=== PATIENT | female | born 1960 | race Caucasian/White ===

== ENCOUNTER 2016-06-18 10:56 | Emergency (ER) | payer MEDICARE ==
[2016-06-18] MEDS ORDERED: ONDANSETRON HCL/PF 4 MG/ 2ML VIAL IVP ONE (11:32)
[2016-06-18] MEDS ORDERED: DIPHENOXYLATE HCL/ATROPINE 1 EACH TABLET PO ONE (11:32)
[2016-06-18 11:40] LABS: BASOPHILS % 0.6 (0.0-1.5); EOSINOPHILS % 0.3 % (0.0-6.8); LYMPHOCYTES # 0.9 # k/uL (0.6-4.0); MEAN CORPUSCULAR HEMOGLOBIN 31.8 pg (28.0-34.0); MONOCYTES # 0.2 # k/uL (0.0-0.9); MONOCYTES % 3.5 % (0.0-11.0); NEUTROPHILS # 3.6 # k/uL (1.4-7.7)
[2016-06-18] MEDS ORDERED: 0.9 % SODIUM CHLORIDE 1,000 ML IV ONE (11:44)
[2016-06-18 11:53] LABS: eGFR (African) > 60; eGFR (Non-African) > 60
[2016-06-18] MEDS ORDERED: 0.9 % SODIUM CHLORIDE 1,000 ML IV SCH (12:00)
--- NOTE | 2016-06-18 13:34 | ED Physician Documentation ---
Nausea/Vomiting/Diarrhea - HISTORIAN Historian: patient - HPI Stated Complaint: N/V/D and Dizziness Chief Complaint: Nausea,Vomiting,Diarrhea Onset: days ago (7) Duration: sudden-onset Timing: sudden onset, still present Context: denies: out of country travel, bad food, recent trauma Severity: moderate Further Comments: no - Associated Symptoms Vomiting: mild Diarrhea: mild Abdominal Pain: none - ROS CONST: no problems CVS/RESP: dry cough. denies: chest pain, shortness of breath GI/: constipation, other (n/v/d) EYES/ENT: none MS/SKIN/LYMPH: denies: joint pain, leg swelling, rash, swollen glands, ankle swelling NEURO/PSYCH: none - PAST HX Past History: none, other (hyperlipidemia) Other History: denies: gall stones, colon problems Surgeries/Procedures: none Immunizations: referred to PCP Allergies/Adverse Reactions: Allergies Allergy/AdvReac Type Severity Reaction Status Date / Time ciprofloxacin HCl Allergy Verified 03/30/14 09:43 [From Cipro] Sulfa (Sulfonamide Allergy Verified 03/30/14 09:43 Antibiotics) [Sulfa(Sulfonamide Antibiotics)] tetracycline [Tetracycline] Allergy Verified 03/30/14 09:43 Home Medications: Ambulatory Orders Medication Instructions Recorded Aspirin [Aspirin EC] 81 mg PO DAILY 04/19/12 Calcium Carbonate/Vitamin D3 1 each PO DAILY 04/19/12 [Calcium + Vitamin D Tablet] Citalopram Hydrobromide 40 mg PO DAILY 04/19/12 [Citalopram HBr] Fluticasone Propionate [Flovent 50 mcg IH DAILY 04/19/12 Diskus] Metformin HCl [Glucophage] 500 mg PO BID 04/19/12 Multivitamin [Multi-Day Vitamins] 1 each PO DAILY 04/19/12 Kim-3/Dha/Epa/Fish Oil [Fish Oil 1 cap PO BID 04/19/12 Kim-3 Softgel] Pravastatin Sodium [Pravachol] 40 mg PO DAILY 04/19/12 Sennosides/Docusate Sodium [Stool 1 each PO TID 04/19/12 Softener Tablet] - SOCIAL HX Smoking History: cigarettes Alcohol Use: none Drug Use: none - FAMILY HX Family History: none - VITAL SIGNS Vital Signs: Vital Signs Temp Pulse Resp BP Pulse Ox 98.1 F 73 18 112/74 95 06/18/16 13:37 03/24/17 13:37 06/18/16 13:37 06/18/16 13:37 06/18/16 13:37 - REVIEWED ASSESSMENTS Nursing Assessment Reviewed: Yes Vitals Reviewed: Yes Progress - Results/Orders Results/Orders: cbc, cmp, ua, cxr, flu a and b ordered - Progress Progress: pt stable entire time in er Critical Care Note - Critical Care Note Total Time (mins): 0 ED Results Lab/Radiology - Lab Results Lab Results: Lab Results 06/18/16 06/18/16 06/18/16 11:55 11:35 11:35 WBC 4.90 K/ul K/ul (4.00-12.00) RBC 4.06 M/ul M/ul (3.90-5.20) Hgb 12.9 g/dL g/dL (12.0-16.0) Hct 36.4 % % (34.5-46.5) MCV 89.6 fl fl (80.0-100.0) MCH 31.8 pg pg (28.0-34.0) MCHC 35.4 g/dL g/dL (30.0-36.0) RDW 12.8 % % (11.3-14.3) Plt Count 174 K/mm3 K/mm3 (130-400) Neut % (Auto) 73.2 % % (39.0-79.0) Lymph % (Auto) 18.9 % % (16.0-50.0) [place] % (Auto) 3.5 % % (0.0-11.0) Eos % (Auto) 0.3 % % (0.0-6.8) Baso % (Auto) 0.6 (0.0-1.5) Neut # 3.6 # k/uL # k/uL (1.4-7.7) Lymph # 0.9 # k/uL # k/uL (0.6-4.0) [place] # 0.2 # k/uL # k/uL (0.0-0.9) Eos # 0.0 # k/uL # k/uL (0.0-0.6) Baso # 0.0 # k/uL # k/uL (0.0-0.5) Reactive Lymphs % 3.6 % % (0.0-5.0) Reactive Lymphs # 0.2 # k/uL # k/uL (0.0-0.8) Sodium 132 mmol/L L mmol/L (136-145) Potassium 4.4 mmol/L mmol/L (3.5-5.0) Chloride 109 mmol/L mmol/L (98-110) Carbon Dioxide 26 mmol/L mmol/L (20-32) BUN 15 mg/dL mg/dL (10-26) Creatinine 0.9 mg/dL mg/dL (0.4-1.5) Estimated Creat Clear 86 Est GFR ( Amer) > 60 (60 - ) Est GFR (Non-Af Amer) > 60 (60 - ) Glucose 206 mg/dL H mg/dL (70-99) Calcium 9.5 mg/dL mg/dL (8.5-10.5) Total Bilirubin 0.5 mg/dL mg/dL (0.2-1.2) AST 45 U/L H U/L (0-41) ALT 38 U/L U/L (0-45) Alkaline Phosphatase 59 U/L U/L (46-116) Total Protein 7.5 g/dL g/dL (6.0-8.5) Albumin 4.5 g/dL g/dL (3.0-5.5) Influenza Type A Ag Negative (NEGATIVE) Influenza Type B Ag Negative (NEGATIVE) - Radiology Radiology Impressions: cxr clear - Orders Orders: ED Orders Category Date Time Status CHEST P.A.&LAT 2 VIEWS [RAD] Stat Exams 06/18/16 Completed CBC/PLATELET/DIFF Routine Lab 06/18/16 11:35 Completed CMP Routine Lab 06/18/16 11:35 Completed INFLUENZA A&B Routine Lab 06/18/16 11:55 Completed 0.9 % Sodium Chloride [Normal Saline] 1,000 ml Med 06/18/16 12:00 Discontinued IV .Q1H 0.9 % Sodium Chloride [Normal Saline] 1,000 ml Med 06/18/16 11:44 Discontinued IV .STK-MED Diphenoxylate HCl/Atropine [Lomotil] Med 06/18/16 11:32 Discontinued 1 each PO NOW ONE Ondansetron HCl/Pf [Zofran 4 mg/2 ml] Med 06/18/16 11:32 Discontinued 8 mg IVP NOW ONE EKG WITH COMPARISON Routine Ther 06/18/16 Ordered Nausea Physical Exam - EXAM General Appearance: alert, moderate distress EENT: eye inspection normal, ENT inspection normal, pharynx normal, no signs of dehydration, IMMI, no nystagmus, TM's nml Neck: normal inspection, thyroid normal, supple Respiratory: no resp distress, chest non-tender, breath sounds normal CVS: reg rate & rhythm, heart sounds normal, equal pulses, no murmur, no gallop , PMI nml, no JVD, no friction rub Abdomen: non-tender, no organomegaly. No: guarding, rebound Back: non-tender, painless ROM. No: vertebral point-tendernes, CVA tenderness, muscle spasm Skin: warm/dry, normal color Extremities: non-tender, normal range of motion, no evidence of injury, no edema Neuro/Psych: oriented X3, CN's nml as tested, motor nml, sensation nml, mood/ affect nml, cognition normal Discharge Clincal Impression: Bronchitis, Gastroenteritis Referrals: Leann Herrmann FNP [Primary Care Provider] - 2 Days Home Medications: Ambulatory Orders Aspirin [Aspirin EC] 81 mg PO DAILY 04/19/12 Calcium Carbonate/Vitamin D3 [Calcium + Vitamin D Tablet] 1 each PO DAILY Citalopram Hydrobromide [Citalopram HBr] 40 mg PO DAILY 04/19/12 Fluticasone Propionate [Flovent Diskus] 50 mcg IH DAILY 04/19/12 Metformin HCl [Glucophage] 500 mg PO BID 04/19/12 Multivitamin [Multi-Day Vitamins] 1 each PO DAILY 04/19/12 Kim-3/Dha/Epa/Fish Oil [Fish Oil Kim-3 Softgel] 1 cap PO BID 04/19/12 Pravastatin Sodium [Pravachol] 40 mg PO DAILY 04/19/12 Sennosides/Docusate Sodium [Stool Softener Tablet] 1 each PO TID 04/19/12 Comments: discharged home with scripts for Keflex 500 mg 2 p.o. bid x 7 days, Lomotil 1 p.o. qid prn diarrhea, Zofran 4 mg #10 1 p.o. qid prn n/v. Condition: Stable Disposition: HOME, SELF-CARE Decision to Admit: NO Decision Time: 13:25
[2016-06-18 13:38] VITALS: BP 112/74
--- NOTE | 2016-06-18 14:59 | Diagnostic Imaging Report ---
[facility] [address] [facility].[address] [address] Report Submission Date: Jun 18, 2016 12:34:31 PM CDT Patient Study Name: KORY MCGREGOR Date: Jun 18, 2016 11:38:31 AM CDT Modality Type: CR Gender: F Description: CHEST : 56 Institution: [facility] Physician KORTNEY BOB - ER Chest -two views CLINICAL HISTORY: Cough and weakness for 1 week. FINDINGS: Examination of the chest in PA and lateral views with no prior film for comparison demonstrates the lungs to be hyperinflated but clear. Cardiovascular and mediastinal silhouettes are within normal limits. Monitor leads superimpose the chest. IMPRESSION: Emphysema. No active disease. Electronically signed on Jun 18, 2016 12:34:31 PM CDT by: Awais SOLER
== END 2016-06-18 13:36 | disposition home or self-care (01) ==
LOC: ED 10:56
DX: J20.9 Acute bronchitis, unspecified (principal); K52.9 Noninfective gastroenteritis and colitis, unspecified
CPT/HCPCS: 71020; 80053; 85025; 87400; J2405; J7030; 96361; 96374; 99283; S1016

== ENCOUNTER 2016-10-16 18:54 | Emergency (ER) | payer MEDICARE ==
[2016-10-16] MEDS ORDERED: ASPIRIN 81 MG CHEW TAB ONE (19:15)
[2016-10-16] MEDS: ASPIRIN 81 MG CHEW TAB PO SCH (19:16)
[2016-10-16 19:37] LABS: BASOPHILS % 0.5 (0.0-1.5); MEAN CORPUSCULAR VOLUME 91.1 fl (80.0-100.0); MONOCYTES % 3.7 % (0.0-11.0); NEUTROPHILS # 8.4 # k/uL (1.4-7.7)
[2016-10-16 19:48] LABS: eGFR (African) > 60; eGFR (Non-African) > 60
[2016-10-16] MEDS: KETOROLAC TROMETHAMINE 30 MG/1ML VIAL IVP ONE (20:07)
--- NOTE | 2016-10-16 20:19 | ED Physician Documentation ---
Chest Pain - HISTORIAN Historian: patient - HPI Stated Complaint: rt chest pain Chief Complaint: Chest Pain Onset: days ago Timing: gradual onset, still present, worse Duration: constant Last known Well Date: 07/26/16 (unknown) Last Known Well Time: 22:48 Last known Well Code/Unknown Code: Unknown Severity: severe Quality: sharp, stabbing Chest Pain Radiation: no radiation, other (tingling in her right arm) Chest Pain Signs/Symptoms: dyspnea. denies: nausea, vomiting Worsened By: deep breaths, movement Relieved By: nothing Further Comments: yes (patient states she is been having some right-sided chest pain for several months. Patient states the pain has been constant and is gradually getting worse. Tonight the pain became severe and patient came into the ED for further evaluation. Patient states the pain is worse with deep breathing and movement. Patient has had a mild nonproductive cough. Denies any hemoptysis.) - ROS CONST: none. denies: fever, chills EYES/ENT: none SKIN/ENDO: none - PAST HX IA risk factors: diabetes Type 2, other (depression) Lung disease: none Immunizations: referred to PCP Allergies/Adverse Reactions: Allergies Allergy/AdvReac Type Severity Reaction Status Date / Time ciprofloxacin HCl Allergy Verified 10/16/16 19:19 [From Cipro] Sulfa (Sulfonamide Allergy Verified 10/16/16 19:19 Antibiotics) [Sulfa(Sulfonamide Antibiotics)] tetracycline [Tetracycline] Allergy Verified 10/16/16 19:19 Home Medications: Ambulatory Orders Medication Instructions Recorded Aspirin [Aspirin EC] 81 mg PO DAILY 04/19/12 Calcium Carbonate/Vitamin D3 1 each PO DAILY 04/19/12 [Calcium + Vitamin D Tablet] Citalopram Hydrobromide 40 mg PO DAILY 04/19/12 [Citalopram HBr] Fluticasone Propionate [Flovent 50 mcg IH DAILY 04/19/12 Diskus] Metformin HCl [Glucophage] 500 mg PO BID 04/19/12 Multivitamin [Multi-Day Vitamins] 1 each PO DAILY 04/19/12 [place]-3/Dha/Epa/Fish Oil [Fish Oil 1 cap PO BID 04/19/12 [place]-3 Softgel] Pravastatin Sodium [Pravachol] 40 mg PO DAILY 04/19/12 Sennosides/Docusate Sodium [Stool 1 each PO TID 04/19/12 Softener Tablet] Hydrocodone/Acetaminophen 1 each PO Q4 PRN #20 tablet 10/16/16 [Hydrocodon-Acetaminophen 5-325] - SOCIAL HX Smoking History: less than 1 pack/day Alcohol Use: none Drug Use: none - FAMILY HX Family HX: none - VITAL SIGNS Vital Signs: Vital Signs Temp Pulse Resp BP Pulse Ox 98 F 96 H 18 139/76 98 10/16/16 18:54 10/16/16 19:32 10/16/16 18:54 10/16/16 18:54 10/16/16 19:32 - REVIEWED ASSESSMENTS Nursing Assessment Reviewed: Yes Vitals Reviewed: Yes Progress - Progress Progress: 20:18 Patient got some immediate relief from the toradol. Will get CT scan of chest ED Results Lab/Radiology - Lab Results Lab Results: Lab Results 10/16/16 10/16/16 10/16/16 19:20 19:20 19:20 WBC 11.00 K/ul K/ul (4.00-12.00) RBC 3.95 M/ul M/ul (3.90-5.20) Hgb 12.2 g/dL g/dL (12.0-16.0) Hct 36.0 % % (34.5-46.5) MCV 91.1 fl fl (80.0-100.0) MCH 31.0 pg pg (28.0-34.0) MCHC 34.0 g/dL g/dL (30.0-36.0) RDW 13.4 % % (11.3-14.3) Plt Count 301 K/mm3 K/mm3 (130-400) Neut % (Auto) 76.6 % % (39.0-79.0) Lymph % (Auto) 15.8 % L % (16.0-50.0) [place] % (Auto) 3.7 % % (0.0-11.0) Eos % (Auto) 2.0 % % (0.0-6.8) Baso % (Auto) 0.5 (0.0-1.5) Neut # (Auto) 8.4 # k/uL H # k/uL (1.4-7.7) Lymph # (Auto) 1.7 # k/uL # k/uL (0.6-4.0) [place] # (Auto) 0.4 # k/uL # k/uL (0.0-0.9) Eos # (Auto) 0.2 # k/uL # k/uL (0.0-0.6) Baso # (Auto) 0.1 # k/uL # k/uL (0.0-0.5) Reactive Lymphs % 1.4 % % (0.0-5.0) Reactive Lymphs # 0.2 # k/uL # k/uL (0.0-0.8) D-Dimer 551 ng/mL ng/mL (6.0-682) Sodium 139 mmol/L mmol/L (136-145) Potassium 3.7 mmol/L mmol/L (3.5-5.0) Chloride 105 mmol/L mmol/L (98-110) Carbon Dioxide 27 mmol/L mmol/L (20-32) BUN 14 mg/dL mg/dL (10-26) Creatinine 0.6 mg/dL mg/dL (0.4-1.5) Estimated Creat Clear 129 Est GFR ( Amer) > 60 (60 - ) Est GFR (Non-Af Amer) > 60 (60 - ) Glucose 149 mg/dL H mg/dL (70-99) Calcium 10.4 mg/dL mg/dL (8.5-10.5) Total Bilirubin 0.3 mg/dL mg/dL (0.2-1.2) AST 23 U/L U/L (0-41) ALT 19 U/L U/L (0-45) Alkaline Phosphatase 82 U/L U/L (46-116) Creatine Kinase 47 U/L U/L (0-225) Troponin I < 0.03 ng/mL L ng/mL (0.03-0.06) Total Protein 8.0 g/dL g/dL (6.0-8.5) Albumin 4.5 g/dL g/dL (3.0-5.5) - Orders Orders: ED Orders Category Date Time Status Continuous EKG monitoring Q30M Care 10/16/16 19:02 Active Continuous Pulse Oximetry Q30M Care 10/16/16 19:02 Active CHEST 1 VIEW [RAD] Stat Exams 10/16/16 19:[address] CHEST W/ CONTRAST Stat Exams 10/16/16 Ordered CBC/PLATELET/DIFF Routine Lab 10/16/16 19:20 Completed CMP Routine Lab 10/16/16 19:20 Completed CREATINE KINASE Routine Lab 10/16/16 19:20 Completed D DIMER Routine Lab 10/16/16 19:20 Completed TROPONIN I (cTnI) Stat Lab 10/16/16 19:20 Completed Aspirin Med 10/16/16 19:15 Discontinued 324 mg .ROUTE .STK-MED ONE Aspirin Med 10/16/16 19:16 Ordered 81 mg PO DAILY Ketorolac Tromethamine [Toradol] Med 10/16/16 19:54 Discontinued 30 mg IVP NOW ONE Oxygen Daily Oxygen 10/16/16 19:15 Ordered EKG WITH COMPARISON Stat Ther 10/16/16 19:02 Ordered Chest Pain Physical Exam - EXAM General Appearance: alert, moderate distress EENT: eye inspection normal, pharynx normal, no signs of dehydration Neck: nml inspection, no carotid bruit. No: JVD present, lymphadenopathy Respiratory: no resp. distress, chest non-tender, nml breath sounds, manifests distinct pain on movement, right. No: resp.distress, wheezes, rales, rhonchi CVS: reg. rate & rhythm, no murmur, no gallop, pulses full, pulses equal Abdomen: soft, no organomegaly, normal bowel sounds, no abdominal bruit Skin: warm/dry, normal color Extremities: non-tender Neuro: oriented X3, mood/affect nml Discharge Clincal Impression: Pleurisy, Lung mass Prescriptions: Hydrocodone/Acetaminophen [Hydrocodon-Acetaminophen 5-325] 1 each PO Q4 PRN #20 tablet PRN Reason: Pain Referrals: Leann Herrmann FNP [Primary Care Provider] - 2 Days Additional Instructions: Follow-up with your primary care provider for further direction on work-up and pain management. Home Medications: Ambulatory Orders Aspirin [Aspirin EC] 81 mg PO DAILY 04/19/12 Calcium Carbonate/Vitamin D3 [Calcium + Vitamin D Tablet] 1 each PO DAILY Citalopram Hydrobromide [Citalopram HBr] 40 mg PO DAILY 04/19/12 Fluticasone Propionate [Flovent Diskus] 50 mcg IH DAILY 04/19/12 Metformin HCl [Glucophage] 500 mg PO BID 04/19/12 Multivitamin [Multi-Day Vitamins] 1 each PO DAILY 04/19/12 [place]-3/Dha/Epa/Fish Oil [Fish Oil [place]-3 Softgel] 1 cap PO BID 04/19/12 Pravastatin Sodium [Pravachol] 40 mg PO DAILY 04/19/12 Sennosides/Docusate Sodium [Stool Softener Tablet] 1 each PO TID 04/19/12 Hydrocodone/Acetaminophen [Hydrocodon-Acetaminophen 5-325] 1 each PO Q4 PRN #20 tablet 10/16/16 Condition: Stable Decision to Admit: NO Date of Decison to Admit: 10/16/16 Decision Time: 21:37
--- NOTE | 2016-10-16 20:52 | Diagnostic Imaging Report ---
BRAXTON CASTANON [facility] [address] [facility] [address] [address] Report Submission Date: Oct 16, 2016 7:22:06 PM CDT Patient Study Name: KORY MCGREGOR Date: Oct 16, 2016 7:08:00 PM CDT Modality Type: CR Gender: F Description: CHEST : 56 Institution: [facility] Physician: BRAXTON CASTANON Chest, AP portable History: Chest pain Findings: No infiltrate, effusion or pneumothorax is present. Heart size, mediastinum and pulmonary vascularity are normal. Since 18 June 2016, no significant change has occurred. Impression: No active disease. Electronically signed on Oct 16, 2016 7:22:06 PM CDT by: Jeff SOLER
--- NOTE | 2016-10-16 21:25 | Diagnostic Imaging Report ---
BRAXTON CASTANON [facility] [address] [address] Report Submission Date: Oct 16, 2016 9:12:48 PM CDT Patient Study Name: KORY MCGREGOR Date: Oct 16, 2016 8:36:08 PM CDT Modality Type: CT\SR Gender: F Description: CT CHEST W/ CONTRAST : 56 Institution: [facility] Physician: BRAXTON CASTANON CT chest with intravenous contrast History: Chest pain Technique: Images through the chest were obtained following intravenous contrast administration. Findings: There is a 4.0 cm right upper lobe pulmonary mass. There is adjacent invasion of the chest wall and destruction the 1st and 2nd ribs. Findings are consistent with malignancy. There is an additional 8 mm right upper lobe pulmonary nodule. No other mass or nodule is identified. There is no infiltrate , effusion or pneumothorax. The heart and mediastinum are normal. The aorta and pulmonary arteries enhance normally. There is no pulmonary embolus or adenopathy. There is calcification in the abdominal aorta. There is a 16 mm mass or density adjacent to or arising from the lower pole the left kidney. Further evaluation is recommended to exclude solid renal mass. Impression: 1. Right upper lobe mass, consistent with malignancy. 2. Pulmonary metastatic disease. 3. Suspected left renal mass. 4. Aortic atherosclerosis. Electronically signed on Oct 16, 2016 9:12:48 PM CDT by: Jeff SOLER
[2016-10-16] MEDS ORDERED: HYDROcodone /APAP 5/325 1 EACH TABLET PEG PRN (21:26)
[2016-10-16] MEDS ORDERED: HYDROcodone /APAP 5/325 1 EACH TABLET ONE (22:11)
[2016-10-16] MEDS: HYDROcodone /APAP 5/325 1 EACH TABLET PO PRN (22:25)
[2016-10-16 22:56] VITALS: BP 146/68
== END 2016-10-16 22:20 ==
LOC: ED 18:54
DX: R09.1 Pleurisy (principal); R91.8 Other nonspecific abnormal finding of lung field
CPT/HCPCS: 71010; 71260; 80053; 82550; 84484; 85025; 85379; 93005; A9270; J1885; Q9966; 96374; 99283; S1016

== ENCOUNTER 2016-10-21 16:49 | Emergency (ER) | payer MEDICARE ==
[2016-10-21] MEDS: oxyCODONE/ACETAMINOPHEN 5/325 TABLET PO ONE (17:15)
[2016-10-21] MEDS: HYDROmorphone HCL/PF 1 MG/ML DISP.SYRIN IM ONE (17:55)
--- NOTE | 2016-10-21 18:55 | ED Physician Documentation ---
Chest Pain - HISTORIAN Historian: patient - HPI Stated Complaint: pain right upper chest/shoulder area Chief Complaint: Chest Pain Additional Information: Pt. diagnosed with lung cancer, hurting right hilar chest area and right upper trapezius area x 1 month. Lung bx 2 days ago. No pain meds. Tired of pain. Was seen in ER last Sat. Vicodin given , no help with pain. Onset: days ago (30) Timing: still present Duration: constant Last known Well Date: 09/16/16 Last Known Well Time: 00:00 Context: other (constant pain) Severity: severe Quality: sharp Front/Back of Body, Lg (Color): 1 - pain 2 - pain Chest Pain Radiation: back Chest Pain Signs/Symptoms: denies: nausea, vomiting, diaphoresis, cool extremities, dizziness, dyspnea, tachypnea, tachycardia, hypotension, palpitations, weakness Worsened By: nothing Relieved By: nothing Further Comments: no - ROS CONST: none MS/LYMPH: none GI/: none EYES/ENT: none SKIN/ENDO: none NEURO/PSYCH: none - PAST HX ND risk factors: hyperlipidemia DVT/PE Risk Factors: cancer TAD/AAA risk factors: none Neuro deficit: none GI disease: none Lung disease: none Surgeries/Procedures: other (ortho) Immunizations: referred to PCP Allergies/Adverse Reactions: Allergies Allergy/AdvReac Type Severity Reaction Status Date / Time ciprofloxacin HCl Allergy Verified 10/21/16 17:11 [From Cipro] Sulfa (Sulfonamide Allergy Verified 10/21/16 17:11 Antibiotics) [Sulfa(Sulfonamide Antibiotics)] tetracycline [Tetracycline] Allergy Verified 10/21/16 17:11 Home Medications: Ambulatory Orders Medication Instructions Recorded Aspirin [Aspirin EC] 81 mg PO DAILY 04/19/12 Calcium Carbonate/Vitamin D3 1 each PO DAILY 04/19/12 [Calcium + Vitamin D Tablet] Citalopram Hydrobromide 40 mg PO DAILY 04/19/12 [Citalopram HBr] Fluticasone Propionate [Flovent 50 mcg IH DAILY 04/19/12 Diskus] Metformin HCl [Glucophage] 500 mg PO BID 04/19/12 Multivitamin [Multi-Day Vitamins] 1 each PO DAILY 04/19/12 [place]-3/Dha/Epa/Fish Oil [Fish Oil 1 cap PO BID 04/19/12 [place]-3 Softgel] Pravastatin Sodium [Pravachol] 40 mg PO DAILY 04/19/12 Sennosides/Docusate Sodium [Stool 1 each PO TID 04/19/12 Softener Tablet] Hydrocodone/Acetaminophen 1 each PO Q4 PRN #20 tablet 10/16/16 [Hydrocodon-Acetaminophen 5-325] - SOCIAL HX Smoking History: cigarettes Alcohol Use: none Drug Use: none - FAMILY HX Family HX: none - VITAL SIGNS Vital Signs: Vital Signs Temp Pulse Resp BP Pulse Ox 93 H 18 141/78 97 10/21/16 16:50 10/21/16 16:50 10/21/16 16:50 10/21/16 16:50 - REVIEWED ASSESSMENTS Nursing Assessment Reviewed: Yes Vitals Reviewed: Yes Progress - Results/Orders Results/Orders: cxr ordered - Progress Progress: pt. given percocet 5/325 x 2 p.o. with minimal to no help. Given 1 mg dilaudid im with complete pain resolution. Critical Care Note - Critical Care Note Total Time (mins): 0 ED Results Lab/Radiology - Lab Results Lab Results: none ordered - Radiology Radiology Impressions: cxr shows right upper lobe lung mass - Orders Orders: ED Orders Category Date Time Status CHEST 1 VIEW [RAD] Routine Exams 10/21/16 Taken HYDROmorphone HCL/PF [Dilaudid] Med 10/21/16 17:46 Discontinued 1 mg IM NOW ONE oxyCODONE HCL/ACETAMINOPHEN [Percocet 5-325 mg Tablet] Med 10/21/16 17:10 Discontinued 2 each PO NOW ONE EKG WITH COMPARISON Routine Ther 10/21/16 Ordered Chest Pain Physical Exam - EXAM General Appearance: alert, severe distress EENT: eye inspection normal, ENT inspection normal, pharynx normal, no signs of dehydration, MIMI, no nystagmus, TM's nml Neck: nml inspection, no carotid bruit Respiratory: no resp. distress, chest non-tender, nml breath sounds CVS: reg. rate & rhythm, no murmur, no gallop, no friction rub, pulses full, pulses equal Abdomen: soft, no organomegaly, normal bowel sounds, no abdominal bruit, non- tender Skin: warm/dry, pallor Extremities: non-tender, normal range of motion, no evidence of injury, no edema Neuro: oriented X3, CN's nml as tested, motor nml, sensation nml, mood/affect nml, cognition normal Discharge Clincal Impression: Lung cancer Qualifiers: Laterality: right Lung location: upper lobe of lung Qualified Code(s): C34.11 - Malignant neoplasm of upper lobe, right bronchus or lung Referrals: Leann Herrmann, [employer] [Primary Care Provider] - 2 Days Home Medications: Ambulatory Orders Aspirin [Aspirin EC] 81 mg PO DAILY 04/19/12 Calcium Carbonate/Vitamin D3 [Calcium + Vitamin D Tablet] 1 each PO DAILY Citalopram Hydrobromide [Citalopram HBr] 40 mg PO DAILY 04/19/12 Fluticasone Propionate [Flovent Diskus] 50 mcg IH DAILY 04/19/12 Metformin HCl [Glucophage] 500 mg PO BID 04/19/12 Multivitamin [Multi-Day Vitamins] 1 each PO DAILY 04/19/12 [place]-3/Dha/Epa/Fish Oil [Fish Oil [place]-3 Softgel] 1 cap PO BID 04/19/12 Pravastatin Sodium [Pravachol] 40 mg PO DAILY 04/19/12 Sennosides/Docusate Sodium [Stool Softener Tablet] 1 each PO TID 04/19/12 Hydrocodone/Acetaminophen [Hydrocodon-Acetaminophen 5-325] 1 each PO Q4 PRN #20 tablet 10/16/16 Comments: pt. discharged in stable condition with script for dilaudid 2 mg 1 p.o. qid prn pain Condition: Stable Disposition: HOME, SELF-CARE Decision to Admit: NO Decision Time: 18:55
--- NOTE | 2016-10-21 18:58 | Diagnostic Imaging Report ---
KORTNEY BOB [facility] [address] [facility] [address] [place], [place]. [address] Report Submission Date: Oct 21, 2016 5:40:09 PM CDT Patient Study Name: KORY MCGREGOR Date: Oct 21, 2016 5:18:49 PM CDT Modality Type: CR Gender: F Description: CHEST : 56 Institution: [facility] Physician: KORTNEY BOB Examination: Portable chest History: Chest discomfort Comparison exam 16 October 2016 Findings: Single view of the chest demonstrates a normal cardiac silhouette. Fullness involving the right hilum and right upper lung. No blunting of the costophrenic margins. Osseous structures are probably for age. Impression: Right hilar and apical fullness: Correlate with CT chest findings. No effusion. It suspect pneumothorax, recommend obtaining PA and lateral film with inspiratory and expiratory imaging. Electronically signed on Oct 21, 2016 5:40:09 PM CDT by: Devendra SOLER
[2016-10-21 19:00] VITALS: BP 168/80
== END 2016-10-21 18:55 | disposition home or self-care (01) ==
LOC: ED 16:49
DX: C34.11 Malignant neoplasm of upper lobe, right bronchus or lung (principal)
CPT/HCPCS: 71010; 96372; 99283; J1170; A9270-GY

== ENCOUNTER 2016-10-28 11:06 | Emergency (ER) | payer MEDICARE ==
--- NOTE | 2016-10-28 11:39 | ED Physician Documentation ---
General Adult - HISTORIAN Historian: patient - HPI Stated Complaint: requesting refill, pain control Chief Complaint: General Adult Onset: days ago (30) Timing: still present Severity: moderate Further Comments: yes (Pt is a 56 yo female with lung cancer and recurrent pain in her chest and R arm. Pt has f/u with Dr. Peace in 6 days. Pt has been seen here for pain in recent weeks. Pt's pcp is away.) - ROS CONST: no problems EYES/ENT: none CVS/RESP: other (recent dx lung cancer) GI/: none MS/SKIN/LYMPH: none - PAST HX Past History: other (HLD, lung cancer, ) Surgeries/Procedures: other (ortho surgery) Allergies/Adverse Reactions: Allergies Allergy/AdvReac Type Severity Reaction Status Date / Time ciprofloxacin HCl Allergy Verified 10/28/16 11:39 [From Cipro] Sulfa (Sulfonamide Allergy Verified 10/28/16 11:39 Antibiotics) [Sulfa(Sulfonamide Antibiotics)] tetracycline [Tetracycline] Allergy Verified 10/28/16 11:39 Home Medications: Ambulatory Orders Medication Instructions Recorded Aspirin [Aspirin EC] 81 mg PO DAILY 04/19/12 Calcium Carbonate/Vitamin D3 1 each PO DAILY 04/19/12 [Calcium + Vitamin D Tablet] Citalopram Hydrobromide 40 mg PO DAILY 04/19/12 [Citalopram HBr] Fluticasone Propionate [Flovent 50 mcg IH DAILY 04/19/12 Diskus] Metformin HCl [Glucophage] 500 mg PO BID 04/19/12 Multivitamin [Multi-Day Vitamins] 1 each PO DAILY 04/19/12 [place]-3/Dha/Epa/Fish Oil [Fish Oil 1 cap PO BID 04/19/12 [place]-3 Softgel] Pravastatin Sodium [Pravachol] 40 mg PO DAILY 04/19/12 Sennosides/Docusate Sodium [Stool 1 each PO TID 04/19/12 Softener Tablet] - SOCIAL HX Smoking History: cigarettes - FAMILY HX Family History: No - VITAL SIGNS Vital Signs: Vital Signs Temp Pulse Resp BP Pulse Ox 91 H 16 153/55 95 10/28/16 11:10 10/28/16 11:10 10/28/16 11:10 10/28/16 11:10 - REVIEWED ASSESSMENTS Nursing Assessment Reviewed: Yes Vitals Reviewed: Yes Progress - Progress Progress: Rx Percocet (5/325) 1-2 po q 4-6 h prn # 20. General Adult Physical Exam - PHYSICAL EXAM GENERAL APPEARANCE: mild distress NECK: normal inspection, supple RESPIRATORY: no resp distress, chest non-tender, breath sounds normal CVS: reg rate & rhythm, heart sounds normal ABDOMEN: soft, no organomegaly, normal bowel sounds BACK: normal inspection SKIN: warm/dry, normal color EXTREMITIES: non-tender, normal range of motion, no evidence of injury NEURO: oriented X3, motor nml, sensation nml Discharge Clincal Impression: pain control Lung cancer Qualifiers: Laterality: unspecified laterality Lung location: unspecified part of lung Qualified Code(s): C34.90 - Malignant neoplasm of unspecified part of unspecified bronchus or lung Referrals: Leann Herrmann FNP [Primary Care Provider] - Home Medications: Ambulatory Orders Aspirin [Aspirin EC] 81 mg PO DAILY 04/19/12 Calcium Carbonate/Vitamin D3 [Calcium + Vitamin D Tablet] 1 each PO DAILY Citalopram Hydrobromide [Citalopram HBr] 40 mg PO DAILY 04/19/12 Fluticasone Propionate [Flovent Diskus] 50 mcg IH DAILY 04/19/12 Metformin HCl [Glucophage] 500 mg PO BID 04/19/12 Multivitamin [Multi-Day Vitamins] 1 each PO DAILY 04/19/12 [place]-3/Dha/Epa/Fish Oil [Fish Oil [place]-3 Softgel] 1 cap PO BID 04/19/12 Pravastatin Sodium [Pravachol] 40 mg PO DAILY 04/19/12 Sennosides/Docusate Sodium [Stool Softener Tablet] 1 each PO TID 04/19/12 Condition: Stable Disposition: 01 HOME, SELF-CARE Decision to Admit: NO Decision Time: 11:56
[2016-10-28 12:03] VITALS: BP 144/62
== END 2016-10-28 12:00 | disposition home or self-care (01) ==
LOC: ED 11:06
DX: R52 Pain, unspecified (principal); C34.90 Malignant neoplasm of unspecified part of unspecified bronchus or lung
CPT/HCPCS: 99283

== ENCOUNTER 2016-10-30 15:06 | Emergency (ER) | payer MEDICARE ==
--- NOTE | 2016-10-30 15:41 | ED Physician Documentation ---
General Adult - HISTORIAN Historian: patient - HPI Stated Complaint: pain med refill Chief Complaint: General Adult Timing: still present Further Comments: yes (Has beendiagnosed with squamous cell lung cancer. Is scheduled to have a PET next week. Has been taking percocet for pain and it is not working well. Is taking Ibuprofen which does not seem to be helping. Has been having pain in the left ant chest area and some pain in) - ROS CONST: fever (low grade), chills CVS/RESP: none GI/: vomiting (secondary to pain or meds) - PAST HX Past History: other (CVD,) Other History: diabetes Type 2 Surgeries/Procedures: other (back, carpal tunnel) Allergies/Adverse Reactions: Allergies Allergy/AdvReac Type Severity Reaction Status Date / Time ciprofloxacin HCl Allergy Verified 10/30/16 15:31 [From Cipro] Sulfa (Sulfonamide Allergy Verified 10/30/16 15:31 Antibiotics) [Sulfa(Sulfonamide Antibiotics)] tetracycline [Tetracycline] Allergy Verified 10/30/16 15:31 Home Medications: Ambulatory Orders Medication Instructions Recorded Aspirin [Aspirin EC] 81 mg PO DAILY 04/19/12 Calcium Carbonate/Vitamin D3 1 each PO DAILY 04/19/12 [Calcium + Vitamin D Tablet] Citalopram Hydrobromide 40 mg PO DAILY 04/19/12 [Citalopram HBr] Fluticasone Propionate [Flovent 50 mcg IH DAILY 04/19/12 Diskus] Metformin HCl [Glucophage] 500 mg PO BID 04/19/12 Multivitamin [Multi-Day Vitamins] 1 each PO DAILY 04/19/12 [place]-3/Dha/Epa/Fish Oil [Fish Oil 1 cap PO BID 04/19/12 [place]-3 Softgel] Pravastatin Sodium [Pravachol] 40 mg PO DAILY 04/19/12 Sennosides/Docusate Sodium [Stool 1 each PO TID 04/19/12 Softener Tablet] HYDROmorphone HCL [Dilaudid] 2 mg PO Q6 #20 tablet 10/30/16 oxyCODONE HCL/ACETAMINOPHEN 1 tab PO Q4H PRN 10/30/16 [Percocet 5/325] - SOCIAL HX Smoking History: less than 1 pack/day (1/2 ppd) Alcohol Use: none Drug Use: none - FAMILY HX Family History: Yes - VITAL SIGNS Vital Signs: Vital Signs Temp Pulse Resp BP Pulse Ox 98.9 F 96 H 20 153/80 97 10/30/16 15:06 10/30/16 15:06 10/30/16 15:06 10/30/16 15:06 10/30/16 15:06 - REVIEWED ASSESSMENTS Nursing Assessment Reviewed: Yes General Adult Physical Exam - PHYSICAL EXAM GENERAL APPEARANCE: moderate distress EENT: eye inspection normal, pharynx normal NECK: normal inspection, thyroid normal RESPIRATORY: no resp distress, breath sounds normal, other (chest wall tenderness to the right upper anterior area. ) CVS: reg rate & rhythm, heart sounds normal, equal pulses, no murmur ABDOMEN: soft, no organomegaly BACK: normal inspection, no CVA tenderness, CVA tenderness (R) SKIN: warm/dry, normal color NEURO: oriented X3, mood/affect nml, cognition normal Discharge Clincal Impression: Lung cancer Prescriptions: HYDROmorphone HCL [Dilaudid] 2 mg PO Q6 #20 tablet Referrals: Leann Herrmann FNP [Primary Care Provider] - 2 Days Additional Instructions: Keep your appointments for next week . Continue to take Ibuprofen and or Tylenol even though you do not feel that they are helping much. Supplement with Dilaudid every 6 hours as needed. Home Medications: Ambulatory Orders Aspirin [Aspirin EC] 81 mg PO DAILY 04/19/12 Calcium Carbonate/Vitamin D3 [Calcium + Vitamin D Tablet] 1 each PO DAILY Citalopram Hydrobromide [Citalopram HBr] 40 mg PO DAILY 04/19/12 Fluticasone Propionate [Flovent Diskus] 50 mcg IH DAILY 04/19/12 Metformin HCl [Glucophage] 500 mg PO BID 04/19/12 Multivitamin [Multi-Day Vitamins] 1 each PO DAILY 04/19/12 [place]-3/Dha/Epa/Fish Oil [Fish Oil [place]-3 Softgel] 1 cap PO BID 04/19/12 Pravastatin Sodium [Pravachol] 40 mg PO DAILY 04/19/12 Sennosides/Docusate Sodium [Stool Softener Tablet] 1 each PO TID 04/19/12 HYDROmorphone HCL [Dilaudid] 2 mg PO Q6 #20 tablet 10/30/16 oxyCODONE HCL/ACETAMINOPHEN [Percocet 5/325] 1 tab PO Q4H PRN 10/30/16 Condition: Stable Disposition: 01 HOME, SELF-CARE Decision to Admit: NO Date of Decison to Admit: 10/30/16 Decision Time: 16:05
[2016-10-30] MEDS ORDERED: HYDROmorphone HCL/PF 2 MG/ML DISP.SYRIN IM ONE (15:53)
[2016-10-30 16:17] VITALS: BP 150/78
== END 2016-10-30 16:09 | disposition home or self-care (01) ==
LOC: ED 15:06
DX: C80.1 Malignant (primary) neoplasm, unspecified (principal)
CPT/HCPCS: 96372; 99283; J1170

== ENCOUNTER 2016-12-02 17:00 | Emergency (ER) | payer MEDICARE ==
--- NOTE | 2016-12-02 17:20 | ED Physician Documentation ---
General Adult - HISTORIAN Historian: patient - HPI Stated Complaint: nose bleed Chief Complaint: General Adult Onset: hours (1) Timing: better Severity: moderate Further Comments: yes (Pt is a 56 yo female with squamous cell lung cancer, undergoing chemotherapy who presents with c/o nose bleed. Pt said that bleeding lasted 45 minutes. It has stopped after arriving in ER. Pt states that she has had low rbc and platelet counts in the past. Pt brings lab results from another facility done earlier this week. Hgb on 11/29/16 was 8.0.) - ROS CONST: no problems EYES/ENT: other (epistaxis L nare) CVS/RESP: none GI/: none MS/SKIN/LYMPH: none - PAST HX Past History: other (CVD, DMII, squamous cell lung cancer) Surgeries/Procedures: other (back; carpal tunnel.) Allergies/Adverse Reactions: Allergies Allergy/AdvReac Type Severity Reaction Status Date / Time ciprofloxacin HCl Allergy Verified 12/02/16 17:37 [From Cipro] Sulfa (Sulfonamide Allergy Verified 12/02/16 17:37 Antibiotics) [Sulfa(Sulfonamide Antibiotics)] tetracycline [Tetracycline] Allergy Verified 12/02/16 17:37 Home Medications: Ambulatory Orders Medication Instructions Recorded Aspirin [Aspirin EC] 81 mg PO DAILY 04/19/12 Calcium Carbonate/Vitamin D3 1 each PO DAILY 04/19/12 [Calcium + Vitamin D Tablet] Citalopram Hydrobromide 40 mg PO DAILY 04/19/12 [Citalopram HBr] Fluticasone Propionate [Flovent 50 mcg IH DAILY 04/19/12 Diskus] Metformin HCl [Glucophage] 500 mg PO BID 04/19/12 Multivitamin [Multi-Day Vitamins] 1 each PO DAILY 04/19/12 [place]-3/Dha/Epa/Fish Oil [Fish Oil 1 cap PO BID 04/19/12 [place]-3 Softgel] Pravastatin Sodium [Pravachol] 40 mg PO DAILY 04/19/12 Sennosides/Docusate Sodium [Stool 1 each PO TID 04/19/12 Softener Tablet] HYDROmorphone HCL [Dilaudid] 2 mg PO Q6 #20 tablet 10/30/16 oxyCODONE HCL/ACETAMINOPHEN 1 tab PO Q4H PRN 10/30/16 [Percocet 5/325] Albuterol Sulfate [Ventolin] 2 mg PO TID 12/02/16 Gabapentin [Neurontin] 100 mg PO TID 12/02/16 Morphine Sulfate [Rajwinder] 20 mg PO Q4 PRN 12/02/16 Ondansetron HCl Rapdis [Zofran ODT] 4 mg PO Q6 PRN 12/02/16 Rivaroxaban [Xarelto] 10 mg PO DAILY 12/02/16 fentaNYL 100 MCG [Duragesic] 1 patch TOP Q72 12/02/16 - SOCIAL HX Smoking History: cigarettes - FAMILY HX Family History: Yes - VITAL SIGNS Vital Signs: Vital Signs Temp Pulse Resp BP Pulse Ox 150/78 10/30/16 16:10 - REVIEWED ASSESSMENTS Nursing Assessment Reviewed: Yes Vitals Reviewed: Yes Progress - Progress Progress: hgb=8.6, improved since earlier this week [id number] no further bleeding in ER General Adult Physical Exam - PHYSICAL EXAM GENERAL APPEARANCE: mild distress EENT: pharynx normal, other (blood seen in L nares; bleeding is controlled) NECK: normal inspection, supple RESPIRATORY: no resp distress, chest non-tender, breath sounds normal CVS: reg rate & rhythm, heart sounds normal, no murmur BACK: normal inspection SKIN: warm/dry, normal color EXTREMITIES: non-tender, normal range of motion NEURO: oriented X3, motor nml, sensation nml Discharge Clincal Impression: Epistaxis Referrals: Leann Herrmann FNP [Primary Care Provider] - Home Medications: Ambulatory Orders Aspirin [Aspirin EC] 81 mg PO DAILY 04/19/12 Calcium Carbonate/Vitamin D3 [Calcium + Vitamin D Tablet] 1 each PO DAILY Citalopram Hydrobromide [Citalopram HBr] 40 mg PO DAILY 04/19/12 Fluticasone Propionate [Flovent Diskus] 50 mcg IH DAILY 04/19/12 Metformin HCl [Glucophage] 500 mg PO BID 04/19/12 Multivitamin [Multi-Day Vitamins] 1 each PO DAILY 04/19/12 [place]-3/Dha/Epa/Fish Oil [Fish Oil [place]-3 Softgel] 1 cap PO BID 04/19/12 Pravastatin Sodium [Pravachol] 40 mg PO DAILY 04/19/12 Sennosides/Docusate Sodium [Stool Softener Tablet] 1 each PO TID 04/19/12 HYDROmorphone HCL [Dilaudid] 2 mg PO Q6 #20 tablet 10/30/16 oxyCODONE HCL/ACETAMINOPHEN [Percocet 5/325] 1 tab PO Q4H PRN 10/30/16 Albuterol Sulfate [Ventolin] 2 mg PO TID 12/02/16 Gabapentin [Neurontin] 100 mg PO TID 12/02/16 Morphine Sulfate [Rajwinder] 20 mg PO Q4 PRN 12/02/16 Ondansetron HCl Rapdis [Zofran ODT] 4 mg PO Q6 PRN 12/02/16 Rivaroxaban [Xarelto] 10 mg PO DAILY 12/02/16 fentaNYL 100 MCG [Duragesic] 1 patch TOP Q72 12/02/16 Condition: Good Disposition: 01 HOME, SELF-CARE Decision to Admit: NO Decision Time: 18:25
[2016-12-02 17:39] LABS: BASOPHILS % 0.4 (0.0-1.5); MEAN CORPUSCULAR HEMOGLOBIN 30.6 pg (28.0-34.0); MEAN CORPUSCULAR VOLUME 93.9 fl (80.0-100.0); MONOCYTES % 2.8 % (0.0-11.0); NEUTROPHILS # 4.4 # k/uL (1.4-7.7)
[2016-12-02 18:00] LABS: eGFR (African) > 60; eGFR (Non-African) > 60
[2016-12-02 18:44] VITALS: BP 113/49
== END 2016-12-02 18:40 | disposition home or self-care (01) ==
LOC: ED 17:00
DX: R04.0 Epistaxis (principal)
CPT/HCPCS: 80053; 85025; 85610; 85730; 99283

== ENCOUNTER 2017-12-26 09:52 | Outpatient (CLI) | payer OTHER, MEDICARE ==
--- NOTE | 2017-12-26 14:29 | Diagnostic Imaging Report ---
BLADIMIR VERMA [facility] [address] [facility] [address] [address] Report Submission Date: Dec 26, 2017 11:34:29 AM CDT Patient Study Name: KORY MCGREGOR Date: Dec 26, 2017 10:12:06 AM CDT Modality Type: DX Gender: F Description: SHOULDER : 56 Institution: [facility] Physician: BLADIMIR VERMA Examination: Plain film right shoulder History: ACUTE PAIN OF RIGHT SHOULDER PT STATES R SHOULDER PAIN X 3 WEEKS AFTER FALL (Hx) Comparison exams: None provided Findings: 6 views of the right shoulder demonstrates osteopenia. Articular degenerative changes. No evidence for fracture or dislocation. Old appearing 1st rib fracture. No soft tissue abnormality Impression: Osteopenia and articular degenerative changes. Old appearing 1st rib fracture. No acute osseous process. Electronically signed on Dec 26, 2017 11:34:29 AM CDT by: Devendra SOLER
--- NOTE | 2017-12-26 14:30 | Diagnostic Imaging Report ---
BLADIMIR VERMA [facility] [address] [facility] [address] [address] Report Submission Date: Dec 26, 2017 11:34:44 AM CDT Patient Study Name: KORY MCGREGOR Date: Dec 26, 2017 10:01:55 AM CDT Modality Type: DX Gender: F Description: SHOULDER : 56 Institution: [facility] Physician: BLADIMIR VERMA Examination: Plain film right shoulder History: ACUTE PAIN OF RIGHT SHOULDER PT STATES R SHOULDER PAIN X 3 WEEKS AFTER FALL (Hx) Comparison exams: None provided Findings: 6 views of the right shoulder demonstrates osteopenia. Articular degenerative changes. No evidence for fracture or dislocation. Old appearing 1st rib fracture. No soft tissue abnormality Impression: Osteopenia and articular degenerative changes. Old appearing 1st rib fracture. No acute osseous process. Electronically signed on Dec 26, 2017 11:34:44 AM CDT by: Devendra SOLER
== END 2017-12-26 09:53 ==
LOC: RAD 09:52
PROVIDERS: ATTEND Family Medicine
DX: M25.511 Pain in right shoulder (principal)
CPT/HCPCS: 73010; 73030

== ENCOUNTER 2018-03-09 19:35 | Emergency (ER) | payer OTHER, MEDICARE ==
--- NOTE | 2018-03-09 19:55 | ED Physician Documentation ---
General Adult - HISTORIAN Historian: patient - HPI Stated Complaint: pain and arm swelling Chief Complaint: General Adult Onset: other (pain is chronic - swelling x 2 days although improving ) Timing: better Severity: moderate Further Comments: yes (She states she has a chronic pain issue with her neck and arm due to a fall and nerve - she has an appt next week with GELY. She has morphine at home that is "not touching the pain" She states her arm is swollen and her hand. Her states the arm is actually less swollen although the hand seems swollen to him. No injury) Last known Well Code/Unknown Code: Unknown - ROS CONST: no problems MS/SKIN/LYMPH: other (arm /hand swelling (right) ) - PAST HX Past History: other (she has chronic pain and neck damage ) Other History: diabetes Type 2 Immunizations: UTD Allergies/Adverse Reactions: Allergies Allergy/AdvReac Type Severity Reaction Status Date / Time ciprofloxacin HCl Allergy Verified 03/09/18 19:56 [From Cipro] Sulfa (Sulfonamide Allergy Verified 03/09/18 19:56 Antibiotics) [Sulfa(Sulfonamide Antibiotics)] tetracycline [Tetracycline] Allergy Verified 03/09/18 19:56 Home Medications: Ambulatory Orders Medication Instructions Recorded Calcium Carbonate/Vitamin D3 1 each PO DAILY 04/19/12 [Calcium + Vitamin D Tablet] Citalopram Hydrobromide 40 mg PO DAILY 04/19/12 [Citalopram HBr] Metformin HCl [Glucophage] 1,000 mg PO BID 04/19/12 Multivitamin [Multi-Day Vitamins] 1 each PO DAILY 04/19/12 Pravastatin Sodium [Pravachol] 40 mg PO DAILY 04/19/12 Albuterol Sulfate [Ventolin] 2 mg PO TID 12/02/16 Gabapentin [Neurontin] 300 mg PO TID 12/02/16 Morphine Sulfate [Rajwinder] 15 mg PO Q4 PRN 12/02/16 Rivaroxaban [Xarelto] 20 mg PO DAILY 12/02/16 fentaNYL 100 MCG [Duragesic] 1 patch TOP Q72 12/02/16 - SOCIAL HX Smoking History: non-smoker Alcohol Use: none Drug Use: none - FAMILY HX Family History: No - VITAL SIGNS Vital Signs: Vital Signs Temp Pulse Resp BP Pulse Ox 113/49 12/02/16 18:40 - REVIEWED ASSESSMENTS Nursing Assessment Reviewed: Yes Vitals Reviewed: Yes Progress - Progress Progress: 1954: after discussion with pt. She states she takes morphine at home. She also has Fentanyl patch on - she did state she just put that on right before coming to ER - reports she forgot about that patch DG She is pacing in the room due to pain which she states is how she has to deal with the pain at home. DG 2114: results discussed and plan. She is aware of her own home meds and pain meds to be continued. She is agreeable DG ED Results Lab/Radiology - Radiology Radiology Impressions: Right forearm 2 views Date of Exam: March 09, 2018. History: elbow pain x1 day, pain/swelling, NKI (Hx) / ITS.REASON Pain Findings: No acute fracture or dislocation is identified. The radius and ulna appear intact. The radiocarpal alignment is maintained. Impression: No acute osseous abnormality. Electronically signed on Mar 09, 2018 9:09:59 PM CIRCULATION SUPERVISOR by: Ephraim Liao Right elbow 3 views Date of Exam: March 09, 2018. History: elbow pain x1 day, pain/swelling, NKI extreme difficulty supinating and externally rotating elbow (Hx) / ITS.REASON pain and swelling Findings: No acute fracture or dislocation is identified. The proximal right radius and ulna are intact. The distal right humerus is normal. Impression: No acute osseous abnormality. Electronically signed on Mar 09, 2018 9:12:08 PM CIRCULATION SUPERVISOR by: Ephraim Liao General Adult Physical Exam - PHYSICAL EXAM GENERAL APPEARANCE: no distress EENT: eye inspection normal, no signs of dehydration NECK: normal inspection RESPIRATORY: no resp distress, chest non-tender, breath sounds normal CVS: reg rate & rhythm, heart sounds normal ABDOMEN: soft, normal bowel sounds, no distension, non-tender BACK: normal inspection SKIN: warm/dry, normal color EXTREMITIES: non-tender, other (she has decreased ROM with right arm/shoulder (she reports this as normal) decrease in ROM is due to extreme pain (which she reports as usual) she has mild swelling in right hand. Pulses intact. Blanket warm dry and sensation is normal. NO warmth to touch or increase pain with touch. ) NEURO: oriented X3 Discharge Clincal Impression: Arm pain Qualifiers: Laterality: right Qualified Code(s): M79.601 - Pain in right arm Referrals: Chun Antonio MD [Primary Care Provider] - 2 Days Comments: 1. Continue home meds 2. Follow up with PCP in am 3. Keep hand elevated with ice 4. Return to ER for any concerns Condition: Stable Disposition: 01 HOME, SELF-CARE Decision to Admit: NO Date of Decison to Admit: 03/09/18 Decision Time: 21:14
[2018-03-09] MEDS ORDERED: fentaNYL CITRATE/PF 100 MCG/2 ML INJ. IVP ONE (20:02)
[2018-03-09 21:36] VITALS: BP 140/47
--- NOTE | 2018-03-10 04:31 | Diagnostic Imaging Report ---
INOCENCIO SOTO [facility] [address] [facility] [address] [place], [place]. [address] Report Submission Date: Mar 09, 2018 9:12:08 PM HEEL ROOM SUPERVISOR Patient Study Name: KORY MCGREGOR Date: Mar 09, 2018 8:14:58 PM HEEL ROOM SUPERVISOR Modality Type: DX Gender: F Description: UPPER EXTREMITY : 56 Institution: [facility] Physician: INOCENCIO SOTO Right elbow 3 views Date of Exam: March 09, 2018. History: elbow pain x1 day, pain/swelling, NKI extreme difficulty supinating and externally rotating elbow (Hx) / ITS.REASON pain and swelling Findings: No acute fracture or dislocation is identified. The proximal right radius and ulna are intact. The distal right humerus is normal. Impression: No acute osseous abnormality. Electronically signed on Mar 09, 2018 9:12:08 PM HEEL ROOM SUPERVISOR by: Ephraim SOLER
--- NOTE | 2018-03-10 04:32 | Diagnostic Imaging Report ---
INOCENCIO SOTO [facility] [address] [facility] [address] [place], [place]. [address] Report Submission Date: Mar 09, 2018 9:09:59 PM COMMERCIAL ESCROW ASSISTANT Patient Study Name: KORY MCGREGOR Date: Mar 09, 2018 8:22:19 PM COMMERCIAL ESCROW ASSISTANT Modality Type: DX Gender: F Description: UPPER EXTREMITY : 56 Institution: [facility] Physician: INOCENCIO SOTO Right forearm 2 views Date of Exam: March 09, 2018. History: elbow pain x1 day, pain/swelling, NKI (Hx) / ITS.REASON Pain Findings: No acute fracture or dislocation is identified. The radius and ulna appear intact. The radiocarpal alignment is maintained. Impression: No acute osseous abnormality. Electronically signed on Mar 09, 2018 9:09:59 PM COMMERCIAL ESCROW ASSISTANT by: Ephraim SOLER
[2018-03-10 07:53] LABS: BASOPHILS % 0.4 (0.0-1.5); EOSINOPHILS % 2.5 % (0.0-6.8); MONOCYTES % 5.6 % (0.0-11.0); NEUTROPHILS # 6.7 # k/uL (1.4-7.7); eGFR (Non-African) > 60
== END 2018-03-09 21:33 | disposition home or self-care (01) ==
LOC: ED 19:35
DX: M79.601 Pain in right arm (principal)
CPT/HCPCS: 36415; 73080; 73090; 80053; 85025; 85379; 96374; 99284; 99285; S1016

== ENCOUNTER 2018-04-07 11:34 | Emergency (ER) | payer OTHER, MEDICARE | END 2018-04-07 11:43 | LOC: ED 11:34 | DX: Z53.21 Procedure and treatment not carried out due to patient leaving prior to being seen by health care provider (principal) ==

== ENCOUNTER 2018-04-09 04:10 | Emergency (ER) | payer OTHER, MEDICARE ==
[2018-04-09] MEDS ORDERED: IPRATROPIUM/ALBUTEROL SULFATE 3 ML AMPUL.NEB NEB STA ×2 (05:04→05:45)
--- NOTE | 2018-04-09 05:18 | Diagnostic Imaging Report ---
MIKKI PRYOR [facility] [address] [facility] [address] [address] Report Submission Date: Apr 09, 2018 5:00:22 AM PHYSICIAN NEONATOLOGY Patient Study Name: LETY MCGREGOR Date: Apr 09, 2018 4:23:06 AM PHYSICIAN NEONATOLOGY Modality Type: DX Gender: F Description: CHEST : 56 Institution: [facility] Physician: MIKKI PRYOR Portable chest History: Dyspnea Portable chest dated April 09, 2018 is without prior radiographs for comparison. Heart size is normal. A Port-A-Cath is present with the tip projecting over the proximal superior vena cava. There is elevation of the right hemidiaphragm with minor right basilar atelectasis. Otherwise, the lungs are clear and there is no pleural effusion. Impression: Presence of a Port-A-Cath as described. Elevation of the right hemidiaphragm with mild associated atelectasis. Otherwise, no active disease. Electronically signed on Apr 09, 2018 5:00:22 AM PHYSICIAN NEONATOLOGY by: Lety SOLER
[2018-04-09] MEDS ORDERED: IPRATROPIUM/ALBUTEROL SULFATE 3 ML AMPUL.NEB NEB ONE (05:44)
--- NOTE | 2018-04-09 05:58 | ED Physician Documentation ---
Dyspnea - HISTORIAN Historian: patient - HPI Stated Complaint: "I am having trouble catching my breath" Chief Complaint: General Adult Additional Information: pt presents to the ED via POV c/o dyspnea and right upper arm swelling. upon arrival she was 74% on RA RR 30s. placed on 4L NC increased O2 to 94% RR 26. Duonebs x 3 admin here with mild improvement now 91% on 4L. Hx of lung cancer. pt last chemotherapy/radiation 1 year ago at [facility]. pt not on home oxygen. pt denies anticoagulant use. Pt was seen in the ED at [place] yesterday (records requested) and had a US RUE and CT chest. pt reports these were negative for thrombus. pt denies current chest pain, syncope/near syncope, headache, dizziness, visual disturbances, n/v/d, fever/chills, rash, sick contacts, dysuria, trauma. melena or hematochezia, bleeding or easy bruising, change in bowel or bladder function, anxiety or depression. ROS Negative unless otherwise specified. - ROS CONST: weakness EYES/ENT: denies: problems with vision, sore throat, nasal drainage, nasal congestion GI/: denies: abdominal pain, problems urinating, vomiting, nausea, diarrhea - PAST HX Lung Disease: other (Lung cancer, DM2. ) PE Risk Factors: cancer Surgeries/Procedures: other (Back surgery) Allergies/Adverse Reactions: Allergies Allergy/AdvReac Type Severity Reaction Status Date / Time ciprofloxacin HCl Allergy Intermediate Hives Verified 04/09/18 04:20 [From Cipro] Sulfa (Sulfonamide Allergy Intermediate Hives Verified 04/09/18 04:20 Antibiotics) [Sulfa(Sulfonamide Antibiotics)] tetracycline [Tetracycline] Allergy Intermediate Hives Verified 04/09/18 04:20 Home Medications: Ambulatory Orders Medication Instructions Recorded Metformin HCl [Glucophage] 1,000 mg PO BID 04/19/12 Multivitamin [Multi-Day Vitamins] 1 each PO DAILY 04/19/12 Albuterol Sulfate [Ventolin] 2 mg PO TID 12/02/16 Gabapentin [Neurontin] 300 mg PO TID 12/02/16 Morphine Sulfate [Rajwinder] 15 mg PO Q4 PRN 12/02/16 Fentanyl 75 mcg TOP Q72 04/09/18 Rivaroxaban [Xarelto] 20 mg PO D 04/09/18 - SOCIAL HX Smoking History: non-smoker Alcohol Use: none Drug Use: none - FAMILY HX Family History: none - VITAL SIGNS Vital Signs: Vital Signs Temp Pulse Resp BP Pulse Ox 97.7 F 98 H 24 133/46 96 04/09/18 04:18 04/09/18 04:18 04/09/18 04:18 04/09/18 04:18 04/09/18 04:18 - REVIEWED ASSESSMENTS Nursing Assessment Reviewed: Yes Vitals Reviewed: Yes ED Results Lab/Radiology - Radiology Radiology Impressions: Report Submission Date: Apr 09, 2018 5:00:22 AM [employer] [employer] Patient Study Name: KORY MCGREGOR Date: Apr 09, 2018 4:23:06 AM [employer] Modality Type: DX Gender: F Description: CHEST : 56 Institution: [facility] Physician: MIKKI PRYOR Portable chest History: Dyspnea Portable chest dated April 09, 2018 is without prior radiographs for comparison. Heart size is normal. A Port-A-Cath is present with the tip projecting over the proximal superior vena cava. There is elevation of the right hemidiaphragm with minor right basilar atelectasis. Otherwise, the lungs are clear and there is no pleural effusion. Impression: Presence of a Port-A-Cath as described. Elevation of the right hemidiaphragm with mild associated atelectasis. Otherwise, no active disease. Electronically signed on Apr 09, 2018 5:00:22 AM [employer] by: Kory Juan - Orders Orders: ED Orders Category Date Time Status Place IV Lock 1T Care 04/09/18 04:24 Active CHEST 1VIEW [RAD] Stat Exams 04/09/18 Completed CBC/PLATELET/DIFF Stat Lab 04/09/18 Received CMP [CMP] Stat Lab 04/09/18 Received D DIMER Stat Lab 04/09/18 Received TROPONIN I (cTnI) Stat Lab 04/09/18 Received UA [URINALYSIS] Routine Lab 04/09/18 Ordered Ipratropium/Albuterol Sulfate [Duoneb] Med 04/09/18 05:04 Discontinued 3 ml NEB NOW STA EKG WITH COMPARISON Stat Ther 04/09/18 Ordered Dyspnea Physical Exam - EXAM General Appearance: moderate distress EENT: eye inspection normal, ENT inspection normal, pharynx normal, no signs of dehydration, MIMI, no nystagmus, TM's nml Neck: nml inspection Respiratory: no resp. distress, no pain on inspiration, respiratory distress, decreased air movement, other (diminished) CVS: reg. rate & rhythm, no murmur, no gallop, no friction rub, pulses full Abdomen: non-tender, no organomegaly, no distention, no ascites Skin: color nml, no rash, warm, dry. No: cyanosis Extremities: non-tender, normal range of motion, no evidence of injury, edema (RUE edematous non tender) Neuro/Psych: oriented x3, motor nml, sensation nml, mood/affect nml Discharge Clincal Impression: Thrombocytopenia Lung cancer Qualifiers: Laterality: unspecified laterality Lung location: unspecified part of lung Qualified Code(s): C34.90 - Malignant neoplasm of unspecified part of unspecified bronchus or lung Additional Instructions: A: hematuria, hypoxia Comments: 0638: Dr Harrington [facility] ED accepted pt for transfer via ALS ground. Condition: Fair Disposition: 01 HOME, SELF-CARE Decision to Admit: NO Date of Decison to Admit: 04/09/18 Decision Time: 06:24
[2018-04-09 06:29] VITALS: BP 116/40
[2018-04-09] MEDS ORDERED: LORazepam 2 MG/ML VIAL IVP STA (06:40)
[2018-04-09 08:18] LABS: APPEARANCE,URINE CLEAR (CLEAR); COLOR,URINE YELLOW (YELLOW); OCCULT BLOOD,URINE 1+ (NEGATIVE); PH URINE 5.5 (5.0 - 8.0); UROBILINOGEN URINE 0.2 Eu (0.2-1.0)
[2018-04-10 09:47] LABS: eGFR (Non-African) > 60
[2018-04-10 09:55] LABS: BASOPHILS % 0.2 (0.0-1.5); EOSINOPHILS % 1.7 % (0.0-6.8); MEAN CORPUSCULAR HEMOGLOBIN 30.3 pg (28.0-34.0); MONOCYTES % 7.5 % (0.0-11.0); NEUTROPHILS # 6.2 # k/uL (1.4-7.7)
== END 2018-04-09 06:23 | disposition home or self-care (01) ==
LOC: ED 04:10
DX: D69.6 Thrombocytopenia, unspecified (principal); C34.90 Malignant neoplasm of unspecified part of unspecified bronchus or lung; R09.02 Hypoxemia; R31.9 Hematuria, unspecified
CPT/HCPCS: 36415; 71045; 80053; 81002; 84484; 85025; 85379; 93005; 94640; 96374; 99285; J2060; S1016

== ENCOUNTER 2018-09-14 08:18 | Emergency (ER) | payer OTHER, MEDICARE ==
[2018-09-20 09:44] LABS: BASOPHILS % 0.2 % (0.0-1.5); NEUTROPHILS # 2.7 # k/uL (1.4-7.7); eGFR (Non-African) > 60
== END 2018-09-14 10:05 | disposition home or self-care (01) ==
LOC: ED 08:18
DX: R53.1 Weakness (principal); R11.0 Nausea; R19.7 Diarrhea, unspecified; T45.1X5A Adverse effect of antineoplastic and immunosuppressive drugs, initial encounter
CPT/HCPCS: 36415; 80053; 85025; 96374; 99283; 99284; S1016

== ENCOUNTER 2018-09-25 12:24 | Emergency (ER) | payer OTHER, MEDICARE ==
[2018-09-25] MEDS ORDERED: 0.9 % SODIUM CHLORIDE 1,000 ML IV ONE (12:52)
[2018-09-25] MEDS ORDERED: ONDANSETRON HCL/PF 4 MG/ 2ML VIAL IVP ONE (12:53)
[2018-09-25 13:31] LABS: BASOPHILS % 0.1 % (0.0-1.5); NEUTROPHILS # 1.9 # k/uL (1.4-7.7)
[2018-09-25 13:48] LABS: eGFR (Non-African) > 60
--- NOTE | 2018-09-25 14:29 | ED Physician Documentation ---
General Adult - HISTORIAN Historian: patient - HPI Stated Complaint: N/V, abd pain Chief Complaint: General Adult Further Comments: yes (58 year old patient presents with complaint of nausea, dry heaves and poor PO intake for the past week. Patient was scheduled to see Dr Ruvalcaba (oncologist) today, "felt to bad to go to [place]". Last Chemo - Tuesday09/18/18.) - ROS CONST: no problems EYES/ENT: none CVS/RESP: none GI/: vomiting, nausea. denies: diarrhea MS/SKIN/LYMPH: none NEURO/PSYCH: denies: headache, fainting, dizziness, tingling, numbness, difficulty walking, difficulty with speech, anxiety, depression, other - PAST HX Past History: other (Lung CA, anxiety) Other History: diabetes Type 2 Allergies/Adverse Reactions: Allergies Allergy/AdvReac Type Severity Reaction Status Date / Time ciprofloxacin HCl Allergy Intermediate Hives Verified 09/25/18 12:50 [From Cipro] Sulfa (Sulfonamide Allergy Intermediate Hives Verified 09/25/18 12:50 Antibiotics) [Sulfa(Sulfonamide Antibiotics)] tetracycline [Tetracycline] Allergy Intermediate Hives Verified 09/25/18 12:50 Home Medications: Ambulatory Orders Medication Instructions Recorded Metformin HCl [Glucophage] 1,000 mg PO BID 04/19/12 Multivitamin [Multi-Day Vitamins] 1 each PO DAILY 04/19/12 Albuterol Sulfate [Ventolin] 2 mg PO TID 12/02/16 Gabapentin [Neurontin] 300 mg PO TID 12/02/16 Morphine Sulfate [Rajwinder] 15 mg PO Q4 PRN 12/02/16 Fentanyl 75 mcg TOP Q72 04/09/18 Rivaroxaban [Xarelto] 20 mg PO D 04/09/18 - SOCIAL HX Smoking History: cigarettes - FAMILY HX Family History: No - VITAL SIGNS Vital Signs: Vital Signs Temp Pulse Resp BP Pulse Ox 98.5 F 85 16 110/69 99 09/25/18 12:25 09/25/18 12:25 09/25/18 12:25 09/25/18 12:25 09/25/18 12:25 - REVIEWED ASSESSMENTS Nursing Assessment Reviewed: Yes Vitals Reviewed: Yes Progress - Progress Progress: Patient states she feels better after IV zofran. [address] Ruvalcaba - updated on lab; will schedule patient to have transfusion this week. 2L NS given while in ER. Patient states she feels much better at discharge. Reviewed dc instructions; questions answered. ED Results Lab/Radiology - Lab Results Lab Results: Lab Results 09/25/18 09/25/18 12:52 12:52 WBC 2.60 K/ul L K/ul (4.00-12.00) RBC 2.54 M/ul L M/ul (3.90-5.20) Hgb 7.4 g/dL L g/dL (11.5-16.0) Hct 22.0 % L % (34.5-46.5) MCV 86.0 fl fl (80.0-100.0) MCH 29.0 pg pg (28.0-34.0) MCHC 33.6 g/dL g/dL (30.0-36.0) RDW 15.1 % H % (11.3-14.3) Plt Count 167 K/mm3 K/mm3 (130-400) Neut % (Auto) 73.8 % % (39.0-79.0) Lymph % (Auto) 13.1 % L % (16.0-50.0) [place] % (Auto) 12.1 % H % (0.0-11.0) Eos % (Auto) 0.9 % % (0.0-6.8) Baso % (Auto) 0.1 % % (0.0-1.5) Neut # (Auto) 1.9 # k/uL # k/uL (1.4-7.7) Lymph # (Auto) 0.3 # k/uL L # k/uL (0.6-4.0) [place] # (Auto) 0.3 # k/uL # k/uL (0.0-0.9) Eos # (Auto) 0.0 # k/uL # k/uL (0.0-0.6) Baso # (Auto) 0.0 # k/uL # k/uL (0.0-0.5) Sodium 135 mmol/L L mmol/L (137-145) Potassium 3.3 mmol/L L mmol/L (3.5-5.1) Chloride 98 mmol/L mmol/L (98-107) Carbon Dioxide 30 mmol/L mmol/L (22-30) BUN 12 mg/dL mg/dL (7-17) Creatinine 0.89 mg/dL mg/dL (0.52-1.04) Estimated Creat Clear 73 Est GFR ( Amer) > 60 (60 - ) Est GFR (Non-Af Amer) > 60 (60 - ) Glucose 132 mg/dL H mg/dL (74-106) Calcium 9.1 mg/dL mg/dL (8.4-10.2) Total Bilirubin 0.4 mg/dL mg/dL (0.2-1.3) AST 37 U/L U/L (15-46) ALT 17 U/L U/L (13-69) Alkaline Phosphatase 65 U/L U/L (38-126) Total Protein 7.1 g/dL g/dL (6.3-8.2) Albumin 3.9 g/dL g/dL (3.5-5.0) - Orders Orders: ED Orders Category Date Time Status Access Port NOW Care 09/25/18 12:52 Active CBC/PLATELET/DIFF Stat Lab 09/25/18 12:52 Completed CMP Stat Lab 09/25/18 12:52 Completed 0.9 % Sodium Chloride [Normal Saline] 1,000 ml Med 09/25/18 12:52 Discontinued IV NOW Ondansetron HCl/Pf [Zofran] Med 09/25/18 12:53 Discontinued 4 mg IVP NOW ONE Potassium Chloride 20 Meq/Ns [KCl 20 Meq/Ns 1000 ml] 1, Med 09/25/18 15:00 Ordered 000 ml IV Q8H General Adult Physical Exam - PHYSICAL EXAM GENERAL APPEARANCE: ill appearing EENT: eye inspection normal, MIMI RESPIRATORY: no resp distress, chest non-tender, breath sounds normal CVS: reg rate & rhythm, heart sounds normal, equal pulses, no murmur, no gallop, PMI nml, no JVD, no friction rub, 24 ABDOMEN: soft, no organomegaly, normal bowel sounds, no abdominal bruit, no distension SKIN: warm/dry, jaundice NEURO: oriented X3, CN's nml as tested, motor nml, sensation nml, mood/affect nml Discharge Clincal Impression: Dehydration Lung cancer Qualifiers: Laterality: unspecified laterality Lung location: unspecified part of lung Qualified Code(s): C34.90 - Malignant neoplasm of unspecified part of unspecified bronchus or lung Nausea & vomiting Qualifiers: Vomiting type: unspecified Vomiting Intractability: non-intractable Qualified Code(s): R11.2 - Nausea with vomiting, unspecified Anemia Qualifiers: Anemia type: unspecified type Qualified Code(s): D64.9 - Anemia, unspecified Referrals: Chun Antonio MD [Primary Care Provider] - 2 Days Condition: Stable Disposition: 01 HOME, SELF-CARE Decision to Admit: NO Decision Time: 16:29
[2018-09-25] MEDS ORDERED: POTASSIUM CHLORIDE 20 MEQ/NS 1,000 ML IV ONE (14:32)
[2018-09-25] MEDS ORDERED: POTASSIUM CHLORIDE 20 MEQ/NS 1,000 ML IV SCH (15:00)
[2018-09-25 15:59] VITALS: BP 122/64
== END 2018-09-25 15:52 | disposition home or self-care (01) ==
LOC: ED 12:24
DX: E86.0 Dehydration (principal); R10.9 Unspecified abdominal pain; R11.2 Nausea with vomiting, unspecified
CPT/HCPCS: 80053; 85025; 96374; 96375; 99283; 99284; J2405; J3480; J7030; S1016

== ENCOUNTER 2018-09-28 10:23 | Emergency (ER) | payer OTHER, MEDICARE ==
[2018-09-28] MEDS ORDERED: 0.9 % SODIUM CHLORIDE 500 ML IV ONE ×2 (10:51→12:01)
[2018-09-28 10:56] LABS: BASOPHILS % 0.2 % (0.0-1.5)
[2018-09-28 11:02] LABS: eGFR (Non-African) > 60
--- NOTE | 2018-09-28 13:53 | ED Physician Documentation ---
General Adult - HISTORIAN Historian: patient - HPI Stated Complaint: weakness, Chief Complaint: General Adult Onset: hours Timing: still present Severity: moderate Further Comments: yes (Pt is a 58 yo lung cancer pt on chemotherapy who here for weakness/malaise. Pt has anemia, but blood for transfusion must be prepared in [place] due to crossmatching difficulties.) - ROS CONST: weakness EYES/ENT: none CVS/RESP: none GI/: none MS/SKIN/LYMPH: none - PAST HX Past History: other (lung cancer, on chemotherapy, DM) Allergies/Adverse Reactions: Allergies Allergy/AdvReac Type Severity Reaction Status Date / Time ciprofloxacin HCl Allergy Intermediate Hives Verified 09/25/18 12:50 [From Cipro] Sulfa (Sulfonamide Allergy Intermediate Hives Verified 09/25/18 12:50 Antibiotics) [Sulfa(Sulfonamide Antibiotics)] tetracycline [Tetracycline] Allergy Intermediate Hives Verified 09/25/18 12:50 Home Medications: Ambulatory Orders Medication Instructions Recorded Metformin HCl [Glucophage] 1,000 mg PO BID 04/19/12 Multivitamin [Multi-Day Vitamins] 1 each PO DAILY 04/19/12 Albuterol Sulfate [Ventolin] 2 mg PO TID 12/02/16 Gabapentin [Neurontin] 300 mg PO TID 12/02/16 Morphine Sulfate [Rajwinder] 15 mg PO Q4 PRN 12/02/16 Fentanyl 75 mcg TOP Q72 04/09/18 Rivaroxaban [Xarelto] 20 mg PO D 04/09/18 - SOCIAL HX Smoking History: cigarettes, less than 1 pack/day - FAMILY HX Family History: No - VITAL SIGNS Vital Signs: Vital Signs Temp Pulse Resp BP Pulse Ox 122/64 09/25/18 15:52 - REVIEWED ASSESSMENTS Nursing Assessment Reviewed: Yes Vitals Reviewed: Yes Progress - Progress Progress: Pt is anemic with hgb = 7.8, but this is slightly improved since 09/25/18 when hgb = 7.4 Pt is feeling better after 1 L NS and and zofran 4 mg IV and wishes to be discharged. ED Results Lab/Radiology - Lab Results Lab Results: Lab Results 09/28/18 09/28/18 09/28/18 10:30 10:30 10:30 WBC 2.80 K/ul L K/ul (4.00-12.00) RBC 2.65 M/ul L M/ul (3.90-5.20) Hgb 7.8 g/dL L g/dL (11.5-16.0) Hct 23.1 % L % (34.5-46.5) MCV 87.0 fl fl (80.0-100.0) MCH 29.4 pg pg (28.0-34.0) MCHC 33.8 g/dL g/dL (30.0-36.0) RDW 15.0 % H % (11.3-14.3) Plt Count 184 K/mm3 K/mm3 (130-400) Neut % (Auto) 70.2 % % (39.0-79.0) Lymph % (Auto) 16.3 % % (16.0-50.0) [place] % (Auto) 12.4 % H % (0.0-11.0) Eos % (Auto) 0.9 % % (0.0-6.8) Baso % (Auto) 0.2 % % (0.0-1.5) Neut # (Auto) 2.0 # k/uL # k/uL (1.4-7.7) Lymph # (Auto) 0.5 # k/uL L # k/uL (0.6-4.0) [place] # (Auto) 0.4 # k/uL # k/uL (0.0-0.9) Eos # (Auto) 0.0 # k/uL # k/uL (0.0-0.6) Baso # (Auto) 0.0 # k/uL # k/uL (0.0-0.5) PT 11.2 Seconds Seconds (8.8-11.9) INR 1.08 (0.80-1.10) APTT 41.2 Seconds H Seconds (24.5-32.8) Sodium 137 mmol/L mmol/L (137-145) Potassium 3.5 mmol/L mmol/L (3.5-5.1) Chloride 102 mmol/L mmol/L (98-107) Carbon Dioxide 28 mmol/L mmol/L (22-30) BUN 8 mg/dL mg/dL (7-17) Creatinine 0.77 mg/dL mg/dL (0.52-1.04) Est GFR ( Amer) > 60 (60 - ) Est GFR (Non-Af Amer) > 60 (60 - ) Glucose 169 mg/dL H mg/dL (74-106) Calcium 9.1 mg/dL mg/dL (8.4-10.2) Total Bilirubin 0.5 mg/dL mg/dL (0.2-1.3) AST 24 U/L U/L (15-46) ALT 15 U/L U/L (13-69) Alkaline Phosphatase 69 U/L U/L (38-126) Total Protein 7.2 g/dL g/dL (6.3-8.2) Albumin 4.0 g/dL g/dL (3.5-5.0) - Orders Orders: ED Orders Category Date Time Status Place IV Lock 1T Care 09/28/18 10:46 Active CBC/PLATELET/DIFF Routine Lab 09/28/18 10:30 Completed CMP Routine Lab 09/28/18 10:30 Completed PT-INR Routine Lab 09/28/18 10:30 Completed PTT Routine Lab 09/28/18 10:30 Completed 0.9 % Sodium Chloride [Normal Saline] 500 ml Med 09/28/18 10:51 Discontinued IV NOW 0.9 % Sodium Chloride [Normal Saline] 500 ml Med 09/28/18 12:01 Discontinued IV NOW General Adult Physical Exam - PHYSICAL EXAM GENERAL APPEARANCE: mild distress EENT: pharynx normal NECK: normal inspection, supple RESPIRATORY: no resp distress, chest non-tender, breath sounds normal CVS: reg rate & rhythm, heart sounds normal ABDOMEN: soft, no organomegaly, normal bowel sounds BACK: normal inspection, no CVA tenderness SKIN: pallor EXTREMITIES: non-tender, normal range of motion, no evidence of injury NEURO: oriented X3, motor nml, sensation nml Discharge Clincal Impression: weakness, anemia Referrals: Chun Antonio MD [Primary Care Provider] - Condition: Stable Disposition: 01 HOME, SELF-CARE Decision to Admit: NO Decision Time: 13:53
[2018-09-28 14:32] VITALS: BP 116/47
== END 2018-09-28 14:00 | disposition home or self-care (01) ==
LOC: ED 10:23
DX: D64.9 Anemia, unspecified (principal)
CPT/HCPCS: 80053; 85025; 85610; 85730; 96360; 96361; 99282; 99284; S1016

== ENCOUNTER 2018-10-13 13:26 | Emergency (ER) | payer OTHER, MEDICARE ==
--- NOTE | 2018-10-13 13:32 | ED Physician Documentation ---
General Adult - HISTORIAN Historian: patient - HPI Stated Complaint: nausea/vomiting Chief Complaint: General Adult Onset: hours Timing: still present Severity: moderate Further Comments: yes (Pt is 58 yo female onclology pt with lung cancer who presents for nausea/vomiting. Sx have been worsening over the past few days. Pt thinks she is dehydrated. No fever.) - ROS CONST: weakness EYES/ENT: none CVS/RESP: none GI/: nausea MS/SKIN/LYMPH: none - PAST HX Past History: other (lung cancer, DMII, back surgery) Allergies/Adverse Reactions: Allergies Allergy/AdvReac Type Severity Reaction Status Date / Time ciprofloxacin HCl Allergy Intermediate Hives Verified 10/13/18 14:19 [From Cipro] Sulfa (Sulfonamide Allergy Intermediate Hives Verified 10/13/18 14:19 Antibiotics) [Sulfa(Sulfonamide Antibiotics)] tetracycline [Tetracycline] Allergy Intermediate Hives Verified 10/13/18 14:19 Home Medications: Ambulatory Orders Medication Instructions Recorded Metformin HCl [Glucophage] 500 mg PO DAILY 04/19/12 Multivitamin [Multi-Day Vitamins] 1 each PO DAILY 04/19/12 Albuterol Sulfate [Ventolin] 2 mg PO TID 12/02/16 Gabapentin [Neurontin] 300 mg PO TID 12/02/16 Morphine Sulfate [Rajwinder] 15 mg PO Q4 PRN 12/02/16 Fentanyl 100 mcg TOP Q72 04/09/18 Rivaroxaban [Xarelto] 20 mg PO D 04/09/18 Citalopram Hydrobromide 40 mg PO DAILY 10/13/18 [Citalopram HBr] Pravastatin Sodium [Pravachol] 1 tab PO DAILY 10/13/18 - SOCIAL HX Smoking History: cigarettes - FAMILY HX Family History: No - VITAL SIGNS Vital Signs: Vital Signs Temp Pulse Resp BP Pulse Ox 116/47 09/28/18 14:00 - REVIEWED ASSESSMENTS Nursing Assessment Reviewed: Yes Vitals Reviewed: Yes Progress - Progress Progress: NS 1 L with 25 mg phenergan improved UTI Rx Macrobid 100 mg. Take one every 12 hours for 5 days. General Adult Physical Exam - PHYSICAL EXAM GENERAL APPEARANCE: moderate distress EENT: pharynx normal NECK: normal inspection, supple RESPIRATORY: no resp distress, chest non-tender, breath sounds normal CVS: reg rate & rhythm, heart sounds normal, equal pulses ABDOMEN: soft, no organomegaly, normal bowel sounds BACK: normal inspection, no CVA tenderness SKIN: warm/dry, normal color EXTREMITIES: non-tender, normal range of motion, no evidence of injury NEURO: oriented X3, motor nml, sensation nml Discharge Clincal Impression: dehydration, nausea/vomiting UTI (urinary tract infection) Qualifiers: Urinary tract infection type: site unspecified Hematuria presence: without hematuria Qualified Code(s): N39.0 - Urinary tract infection, site not specified Referrals: Chun Antonio MD [Primary Care Provider] - Condition: Stable Disposition: 01 HOME, SELF-CARE Decision to Admit: NO Decision Time: 15:53
[2018-10-13] MEDS ORDERED: 0.9 % SODIUM CHLORIDE 1,000 ML IV ONE (13:42)
[2018-10-13] MEDS ORDERED: PROMETHAZINE HCL 25 MG in 0.9 % SODIUM CHLORIDE 50 ML IV ONE (13:43)
[2018-10-13 14:23] LABS: BASOPHILS % 0.2 % (0.0-1.5)
[2018-10-13 14:33] LABS: eGFR (Non-African) > 60
[2018-10-13 16:48] VITALS: BP 138/53
[2018-10-15 21:05] LABS: APPEARANCE,URINE CLEAR (CLEAR); COLOR,URINE AMBER (YELLOW); OCCULT BLOOD,URINE NEGATIVE (NEGATIVE); PH URINE 7.5 (5.0 - 8.0)
== END 2018-10-13 16:21 | disposition home or self-care (01) ==
LOC: ED 13:26
DX: E86.0 Dehydration (principal); R11.2 Nausea with vomiting, unspecified; N39.0 Urinary tract infection, site not specified
CPT/HCPCS: 80053; 81002; 85025; 87086; 87186; 96374; 99284; J2550; J7030